=== PATIENT | female | born 1960 | race Two or more races ===

== ENCOUNTER → 2017-06-18 12:58 | Outpatient (CLI) | payer OTHER ==
[~2017-06-18 12:58] MED LIST: CATAFLAM50 MG PO; HYDROCHLOROTH12.5 M1; NORFLEX100MG PO; ZESTRIL10 M1
== END | disposition home or self-care (01) ==
LOC: LAB 12:58
DX: B35.1 Tinea unguium (principal)

== ENCOUNTER 2017-08-20 08:00 | Outpatient (CLI) | payer OTHER | END 2017-08-20 12:39 | disposition home or self-care (01) | LOC: LAB 08:00 | DX: B35.1 Tinea unguium (principal) ==

== ENCOUNTER 2018-06-19 18:50 | Outpatient (CLI) | payer OTHER | END 2018-06-19 18:58 | disposition home or self-care (01) | LOC: LAB 18:50 | DX: Z02.89 Encounter for other administrative examinations (principal) ==

== ENCOUNTER 2019-11-05 07:43 | Emergency (ER) | payer OTHER ==
[~2019-11-05] VITALS: Ht 172.7 cm; Wt 106.6 kg
[2019-11-05] MEDS ORDERED: ZESTORETIC 10-1 EACH (07:58)
== END 2019-11-05 13:53 | disposition home or self-care (01) ==
LOC: ER 07:43 → CPU-OBS 08:41 → ER 13:53
DX: R07.89 Other chest pain (principal); I10 Essential (primary) hypertension
CPT/HCPCS: G0378; G0379; 93005

== ENCOUNTER 2019-11-08 20:58 | Emergency (ER) | payer OTHER ==
[~2019-11-08] VITALS: Ht 172.7 cm; Wt 106.6 kg
[~2019-11-08 20:58] MED LIST changes: +ZESTORETIC 10-1 EACH
[2019-11-08] MEDS ORDERED: ZESTRIL10 M1 (21:06)
[2019-11-09] MEDS ORDERED: SKELAXIN800 MG PO (08:19)
[2019-11-09] MEDS ORDERED: DIAZEPAM5 MG PO (08:19)
== END 2019-11-09 08:48 | disposition home or self-care (01) ==
LOC: ER 20:58
DX: I10 Essential (primary) hypertension (principal); M62.838 Other muscle spasm

== ENCOUNTER → 2019-11-11 08:06 | Outpatient (CLI) | payer OTHER ==
[~2019-11-11 08:06] MED LIST changes: +DIAZEPAM5 MG PO; +SKELAXIN800 MG PO
== END | disposition home or self-care (01) ==
LOC: LAB 08:06
PROVIDERS: ATTEND Pediatrics
DX: E11.8 Type 2 diabetes mellitus with unspecified complications (principal); E55.9 Vitamin D deficiency, unspecified; E78.49 Other hyperlipidemia

== ENCOUNTER 2019-11-13 12:17 | Outpatient (CLI) | payer OTHER | END 2019-11-13 13:24 | disposition home or self-care (01) | LOC: SONOGRAMA 12:17 | PROVIDERS: ATTEND Internal Medicine Cardiovascular Disease | DX: E07.89 Other specified disorders of thyroid (principal) ==

== ENCOUNTER 2019-11-15 08:00 | Outpatient (CLI) | payer OTHER | END 2019-11-15 08:02 | disposition home or self-care (01) | LOC: NUCLEAR 08:00 | PROVIDERS: ATTEND Internal Medicine Cardiovascular Disease | DX: R94.31 Abnormal electrocardiogram [ECG] [EKG] (principal) | CPT/HCPCS: 78452; 93017; A9500 ==

== ENCOUNTER → 2019-12-20 16:12 | Outpatient (CLI) | payer OTHER | END | disposition home or self-care (01) | LOC: LAB 16:12 | DX: Z11.59 Encounter for screening for other viral diseases (principal) ==

== ENCOUNTER 2020-01-07 14:21 | Outpatient (CLI) | payer OTHER | END 2020-01-07 14:28 | disposition home or self-care (01) | LOC: SONOGRAMA 14:21 | PROVIDERS: ATTEND Obstetrics & Gynecology | DX: E28.310 Symptomatic premature menopause (principal); N76.2 Acute vulvitis; B37.3 Candidiasis of vulva and vagina; R93.5 Abnormal findings on diagnostic imaging of other abdominal regions, including retroperitoneum ==

== ENCOUNTER 2020-01-09 10:18 | Outpatient (CLI) | payer OTHER | END 2020-01-09 10:29 | disposition home or self-care (01) | LOC: LAB 10:18 | DX: I10 Essential (primary) hypertension (principal); E03.8 Other specified hypothyroidism; E11.9 Type 2 diabetes mellitus without complications; Z13.0 Encounter for screening for diseases of the blood and blood-forming organs and certain disorders involving the immune mechanism; Z12.11 Encounter for screening for malignant neoplasm of colon; E78.1 Pure hyperglyceridemia; E78.00 Pure hypercholesterolemia, unspecified; N31.8 Other neuromuscular dysfunction of bladder ==

== ENCOUNTER 2020-01-14 09:34 | Outpatient (CLI) | payer OTHER ==
[2020-02-20] MEDS ORDERED: JARDIANCE25 MG PO (10:55)
[2020-02-20] MEDS ORDERED: FOLIC PO (10:56)
[2020-02-20] MEDS ORDERED: TOPROL XL50 M1 PO (10:56)
[2020-02-20] MEDS ORDERED: ZINC PO (10:57)
[2020-02-20] MEDS ORDERED: ZESTRIL20 MG PO (10:57)
[2020-02-20] MEDS ORDERED: HYDROCHLOROTH12.5 MG PO (10:57)
== END 2020-01-14 15:00 | disposition home or self-care (01) ==
LOC: LAB 09:34
PROVIDERS: ATTEND Internal Medicine Cardiovascular Disease
DX: Z12.11 Encounter for screening for malignant neoplasm of colon (principal); B08.5 Enteroviral vesicular pharyngitis; Z13.0 Encounter for screening for diseases of the blood and blood-forming organs and certain disorders involving the immune mechanism

== ENCOUNTER 2020-01-20 10:55 | Outpatient (CLI) | payer OTHER ==
[2020-02-20] MEDS ORDERED: JARDIANCE25 MG PO (10:55)
[2020-02-20] MEDS ORDERED: FOLIC PO (10:56)
[2020-02-20] MEDS ORDERED: TOPROL XL50 M1 PO (10:56)
[2020-02-20] MEDS ORDERED: HYDROCHLOROTH12.5 MG PO (10:57)
[2020-02-20] MEDS ORDERED: ZINC PO (10:57)
[2020-02-20] MEDS ORDERED: ZESTRIL20 MG PO (10:57)
== END 2020-01-20 15:00 | disposition home or self-care (01) ==
LOC: LAB 10:55
PROVIDERS: ATTEND Internal Medicine Cardiovascular Disease
DX: I10 Essential (primary) hypertension (principal); N31.8 Other neuromuscular dysfunction of bladder; E78.1 Pure hyperglyceridemia; Z13.0 Encounter for screening for diseases of the blood and blood-forming organs and certain disorders involving the immune mechanism; Z12.11 Encounter for screening for malignant neoplasm of colon; E03.8 Other specified hypothyroidism; E11.9 Type 2 diabetes mellitus without complications; E78.00 Pure hypercholesterolemia, unspecified

== ENCOUNTER 2020-02-21 12:00 | Outpatient (CLI) | payer OTHER ==
[~2020-02-21 12:00] MED LIST changes: +FOLIC PO; +HYDROCHLOROTH12.5 MG PO; +JARDIANCE25 MG PO; +TOPROL XL50 M1 PO; +ZESTRIL20 MG PO; +ZINC PO
== END 2020-02-21 12:01 | disposition home or self-care (01) ==
LOC: PPH VACUNA 12:00
DX: Z23 Encounter for immunization (principal)

== ENCOUNTER 2020-02-27 08:00 | Day surgery (SDC) | payer OTHER ==
[2020-02-27] MEDS ORDERED: NAPR500T14 PO (14:52)
== END 2020-02-27 20:25 | disposition home or self-care (01) ==
LOC: CIR.AMB 08:00
PROVIDERS: ATTEND Obstetrics & Gynecology
DX: N84.0 Polyp of corpus uteri (principal); Z20.828 Contact with and (suspected) exposure to other viral communicable diseases

== ENCOUNTER → 2020-04-18 09:38 | Outpatient (CLI) | payer OTHER ==
[~2020-04-18 09:38] MED LIST changes: +NAPR500T14 PO
== END | disposition home or self-care (01) ==
LOC: LAB 09:38
PROVIDERS: ATTEND Pediatrics
DX: E03.8 Other specified hypothyroidism (principal); E88.81 Metabolic syndrome and other insulin resistance; E55.9 Vitamin D deficiency, unspecified; E11.9 Type 2 diabetes mellitus without complications; E78.49 Other hyperlipidemia

== ENCOUNTER 2020-07-07 15:32 | Outpatient (CLI) | payer OTHER | END 2020-07-07 15:39 | disposition home or self-care (01) | LOC: LAB 15:32 | DX: Z02.79 Encounter for issue of other medical certificate (principal) ==

== ENCOUNTER 2020-09-04 08:38 | Outpatient (CLI) | payer OTHER | END 2020-09-04 15:10 | disposition home or self-care (01) | LOC: LAB 08:38 | DX: E11.9 Type 2 diabetes mellitus without complications (principal); E03.8 Other specified hypothyroidism; E88.81 Metabolic syndrome and other insulin resistance; E55.9 Vitamin D deficiency, unspecified; E78.49 Other hyperlipidemia ==

== ENCOUNTER → 2020-12-07 10:39 | Outpatient (CLI) | payer OTHER | END | disposition home or self-care (01) | LOC: LAB 10:39 | PROVIDERS: ATTEND Internal Medicine Cardiovascular Disease | DX: E11.9 Type 2 diabetes mellitus without complications (principal); E78.89 Other lipoprotein metabolism disorders ==

== ENCOUNTER 2021-01-14 11:09 | Outpatient (CLI) | payer OTHER | END 2021-01-14 11:27 | disposition home or self-care (01) | LOC: LAB 11:09 | PROVIDERS: ATTEND Pediatrics Neonatal-Perinatal Medicine | DX: Z03.818 Encounter for observation for suspected exposure to other biological agents ruled out (principal) ==

== ENCOUNTER → 2021-02-26 | Outpatient (CLI) | payer OTHER | END | disposition home or self-care (01) | LOC: PPH VACUNA 08:00 | PROVIDERS: ATTEND Emergency Medicine Pediatric Emergency Medicine | DX: Z23 Encounter for immunization (principal) ==

== ENCOUNTER 2021-04-05 08:00 | Outpatient (CLI) | payer OTHER | END 2021-04-05 08:30 | disposition home or self-care (01) | LOC: PPH VACUNA 08:00 | PROVIDERS: ATTEND Emergency Medicine Pediatric Emergency Medicine | DX: Z23 Encounter for immunization (principal) ==

== ENCOUNTER 2021-09-23 08:00 | Outpatient (CLI) | payer OTHER | END 2021-09-23 08:30 | disposition home or self-care (01) | LOC: PPH VACUNA 08:00 | PROVIDERS: ATTEND Emergency Medicine Pediatric Emergency Medicine | DX: Z23 Encounter for immunization (principal) ==

== ENCOUNTER 2022-03-11 14:43 | Outpatient (CLI) | payer OTHER | END 2022-03-11 14:44 | disposition home or self-care (01) | LOC: PPH VACUNA 14:43 | PROVIDERS: ATTEND Emergency Medicine Pediatric Emergency Medicine | DX: Z23 Encounter for immunization (principal) ==

== ENCOUNTER 2022-11-22 08:27 | Outpatient (CLI) | payer OTHER | END 2022-11-22 08:29 | disposition home or self-care (01) | LOC: LAB 08:27 | PROVIDERS: ATTEND Pediatrics Neonatal-Perinatal Medicine | DX: Z20.822 Contact with and (suspected) exposure to COVID-19 (principal); Z20.828 Contact with and (suspected) exposure to other viral communicable diseases; A49.3 Mycoplasma infection, unspecified site; J11.1 Influenza due to unidentified influenza virus with other respiratory manifestations ==

== ENCOUNTER 2023-03-31 15:00 | Outpatient (CLI) | payer OTHER | END 2023-03-31 15:10 | disposition home or self-care (01) | LOC: PPH VACUNA 15:00 | PROVIDERS: ATTEND Emergency Medicine Pediatric Emergency Medicine | DX: Z23 Encounter for immunization (principal) | CPT/HCPCS: 90686; G0008 ==

== ENCOUNTER 2024-03-25 02:40 | Outpatient (CLI) | payer OTHER | END 2024-03-25 03:00 | disposition home or self-care (01) | LOC: PPH VACUNA 02:40 | PROVIDERS: ATTEND Emergency Medicine Pediatric Emergency Medicine | DX: Z23 Encounter for immunization (principal) ==